=== PATIENT | female | born 1935 | race Caucasian/White ===

== ENCOUNTER 2018-05-30 09:11 | Inpatient (IN) | payer BC ==
[~2018-05-30] VITALS: Ht 154.9 cm; Wt 55.9 kg
[~2018-05-30 09:11] MED LIST: ASPI81CH43 PO; BUM1T PO; FLUT250M2 INH; PAR20T GT; POTA1TAB61 PO
[2018-05-30 09:50] LABS: Basophils # (auto) 0 uL; Basophils % (auto) 0.5 % (0.0-2.0); Eosinophils # (auto) 0.3 uL; Eosinophils % (auto) 3.3 % (0.0-7.0); Hematocrit 43.5 % (36.0-46.0); Hemoglobin 14.9 g/dL (12.2-16.2); Lymphocytes % (auto) 13.7 % (10.0-50.0); Mean Corpuscular Hemoglobin 33.5 pg (28.0-32.0); Mean Corpuscular Hgb Conc. 34.2 g/dL (32.0-36.0); Monocytes # (auto) 0.5 uL; Monocytes % (auto) 7.1 % (0.0-12.0); Neutrophils # (auto) 5.8 uL; Neutrophils % (auto) 75.4 % (37.0-80.0); Nucleated Red Blood Cells % 0.1 %; Platelet Count (auto) 358 10^3/uL (140-450); Red Blood Cells 4.44 10^6/uL (4.0-5.20); Red Cell Distribution Width 12.9 % (11.8-14.3); White Blood Cell 7.7 10^3/uL (4.4-10.8)
[2018-05-30] MEDS ORDERED: LORazepam 2MG/ML-1ML VIAL ONE (10:04)
[2018-05-30] MEDS ORDERED: LORazepam 2MG/ML-1ML VIAL IV ONE (10:15)
[2018-05-30 10:16] LABS: Alanine Aminotransferase 19 U/L (13-56); Albumin 3.7 g/dL (3.4-5.0); Alkaline Phosphatase 74 U/L (45-117); Anion Gap 9 (5-15); Aspartate Aminotransferase 18 U/L (15-37); BUN/Creatinine Ratio 21.2; Bilirubin, Total 0.6 mg/dL (0.2-1.0); Blood Urea Nitrogen 24 mg/dL (7-18); Carbon Dioxide 25 mmol/L (21-32); Chloride 91 mmol/L (98-107); GFR African American 60 mL/min; GFR Non-African American 49 mL/min; Glucose 94 mg/dL (74-106); Magnesium 2.3 mg/dL (1.6-2.6); Potassium 4.4 mmol/L (3.5-5.1); Sodium 125 mmol/L (136-145)
[2018-05-30 10:26] LABS: Urine WBC None Seen /hpf (0 - 5)
[2018-05-30 10:31] LABS: Urine Bacteria NONE SEEN /hpf (None Seen); Urine Blood Negative /uL (Negative); Urine Specific Gravity 1.009 (1.001-1.035)
[2018-05-30] MEDS ORDERED: SODIUM CHLORIDE 0.9% 1,000 ML IV ONE (11:58)
[2018-05-30] MEDS ORDERED: NITROGLYCERIN 0.4 MG SL TAB SL PRN (12:45)
[2018-05-30] MEDS ORDERED: ACETAMINOPHEN 325 MG TAB PO PRN (12:45)
[2018-05-30] MEDS ORDERED: MORPHINE SULFATE 4 MG/ML SYR/VIAL IV PRN ×2 (12:45)
[2018-05-30] MEDS ORDERED: LORazepam 2MG/ML-1ML VIAL IV PRN (12:45)
[2018-05-30] MEDS ORDERED: ONDANSETRON HCL 4 MG/2 ML VIAL IV PRN (12:45)
[2018-05-30] MEDS ORDERED: DOCUSATE SOD 100 MG CAP PO PRN (12:45)
[2018-05-30] MEDS ORDERED: HYDROcodone-ACET 5/325MG TAB PO PRN (12:45)
[2018-05-30] MEDS: SODIUM CHLOR 0.9% PF (SALINE LOCK) 10ML VIAL/SYR IV SCH ×2 (14:00→22:24)
[2018-05-30 17:40] VITALS: BP 140/83
[2018-05-30] MEDS ORDERED: FURO40TA PO (19:42)
[2018-05-30] MEDS ORDERED: LORA-655 PO (19:42)
[2018-05-30] MEDS ORDERED: LISI2.5T47 PO (19:42)
[2018-05-30 22:00] VITALS: BP 109/59
[2018-05-30] MEDS: ADVAIR IN SCH (22:00)
[2018-05-31 05:30] VITALS: BP 139/75
[2018-05-31 05:34] LABS: Basophils # (auto) 0.1 uL; Eosinophils # (auto) 0.4 uL; Eosinophils % (auto) 5.4 % (0.0-7.0); Hematocrit 44.9 % (36.0-46.0); Hemoglobin 14.9 g/dL (12.2-16.2); Lymphocytes # (auto) 1.4 uL; Lymphocytes % (auto) 19.5 % (10.0-50.0); Mean Corpuscular Hemoglobin 33.4 pg (28.0-32.0); Mean Corpuscular Hgb Conc. 33.1 g/dL (32.0-36.0); Mean Corpuscular Volume 100.7 fL (80.0-100.0); Monocytes # (auto) 0.8 uL; Monocytes % (auto) 11.4 % (0.0-12.0); Neutrophils # (auto) 4.6 uL; Neutrophils % (auto) 62.7 % (37.0-80.0); Nucleated Red Blood Cells % 0.1 %; Platelet Count (auto) 342 10^3/uL (140-450); Red Blood Cells 4.46 10^6/uL (4.0-5.20); Red Cell Distribution Width 13.1 % (11.8-14.3); White Blood Cell 7.3 10^3/uL (4.4-10.8)
[2018-05-31 05:57] LABS: Albumin 3.3 g/dL (3.4-5.0); BUN/Creatinine Ratio 22.5; Calcium 8.8 mg/dL (8.5-10.1); Potassium 4.2 mmol/L (3.5-5.1)
[2018-05-31 06:00] LABS: Bilirubin, Total 0.6 mg/dL (0.2-1.0); Total Protein 6.3 g/dL (6.4-8.2)
[2018-05-31] MEDS: SODIUM CHLOR 0.9% PF (SALINE LOCK) 10ML VIAL/SYR IV SCH ×3 (06:31→21:26)
[2018-05-31 08:28] VITALS: BP 133/73
[2018-05-31 09:47] LABS: Cholesterol 243 mg/dL (< 200); HDL Cholesterol 77 mg/dL (40-59); LDL Cholesterol 145 mg/dL (< 100); Triglycerides 153 mg/dL (< 150)
[2018-05-31] MEDS: ADVAIR IN SCH ×2 (10:00→21:26)
[2018-05-31] MEDS ORDERED: ASPirin-EC 81 mg tab PO SCH (10:00)
[2018-05-31] MEDS: ASPirin-EC 81 mg tab PO SCH (10:09)
[2018-05-31] MEDS: PARoxetine 20 MG TAB PO SCH ×2 (10:09→10:22)
[2018-05-31] MEDS: LISINOPRIL 5 MG TAB PO SCH (10:10)
[2018-05-31] MEDS: POTASSIUM CHL 10 Meq TABLET PO SCH (10:11)
[2018-05-31] MEDS: MULTIPLE VITAMIN TAB PO SCH (10:12)
[2018-05-31] MEDS: BUMETANIDE 1 MG TAB PO SCH (10:12)
[2018-05-31 13:13] VITALS: BP 106/60
[2018-05-31] MEDS ORDERED: LORazepam 0.5 MG TAB PO ONE (15:15)
[2018-05-31 17:28] VITALS: BP 118/69
[2018-05-31 22:00] VITALS: BP 97/56
[2018-05-31] MEDS ORDERED: LORazepam 0.5 MG TAB PO SCH (22:00)
[2018-05-31] MEDS ORDERED: ATORVASTATIN 20 MG TAB PO SCH (22:00)
[2018-05-31] MEDS ORDERED: LEVO25TA6 PO (22:21)
[2018-06-01 05:00] VITALS: BP 103/65
[2018-06-01] MEDS: SODIUM CHLOR 0.9% PF (SALINE LOCK) 10ML VIAL/SYR IV SCH ×2 (06:22→14:00)
[2018-06-01 09:02] VITALS: BP 105/59
[2018-06-01] MEDS: ASPirin-EC 81 mg tab PO SCH (09:26)
[2018-06-01] MEDS: MULTIPLE VITAMIN TAB PO SCH (09:27)
[2018-06-01] MEDS: POTASSIUM CHL 10 Meq TABLET PO SCH (09:28)
[2018-06-01] MEDS: PARoxetine 20 MG TAB PO SCH ×2 (09:28)
[2018-06-01] MEDS: ADVAIR IN SCH (09:29)
[2018-06-01] MEDS: BUMETANIDE 1 MG TAB PO SCH (09:29)
[2018-06-01] MEDS: LISINOPRIL 5 MG TAB PO SCH (09:30)
[2018-06-01 12:00] VITALS: BP 128/78
[2018-06-01] MEDS ORDERED: ATORVASTATIN 20 MG TAB PO ONE (15:15)
[2018-06-01 17:22] VITALS: BP 140/72
== END 2018-06-01 17:38 | disposition home health service (06) | DRG 897 ==
LOC: EDBD 09:11 → ER 09:14 → TELE 09:15 → TELE-WESTW 17:24
PROVIDERS: ADMIT Internal Medicine; ATTEND Internal Medicine
DX: F13.239 Sedative, hypnotic or anxiolytic dependence with withdrawal, unspecified (principal); E87.1 Hypo-osmolality and hyponatremia; I13.0 Hypertensive heart and chronic kidney disease with heart failure and stage 1 through stage 4 chronic kidney disease, or unspecified chronic kidney disease; J44.9 Chronic obstructive pulmonary disease, unspecified; N18.3 Chronic kidney disease, stage 3 (moderate); E78.5 Hyperlipidemia, unspecified; F17.200 Nicotine dependence, unspecified, uncomplicated; I50.9 Heart failure, unspecified; R41.81 Age-related cognitive decline; F32.9 Major depressive disorder, single episode, unspecified; F41.1 Generalized anxiety disorder; I67.2 Cerebral atherosclerosis; Z79.82 Long term (current) use of aspirin; Z79.899 Other long term (current) drug therapy; Z81.8 Family history of other mental and behavioral disorders; Z82.3 Family history of stroke; Z82.49 Family history of ischemic heart disease and other diseases of the circulatory system; Z86.73 Personal history of transient ischemic attack (TIA), and cerebral infarction without residual deficits; Z91.19 Patient's noncompliance with other medical treatment and regimen; Z83.3 Family history of diabetes mellitus; Z88.8 Allergy status to other drugs, medicaments and biological substances; Z90.49 Acquired absence of other specified parts of digestive tract; Z80.42 Family history of malignant neoplasm of prostate
CPT/HCPCS: 36415; 70450; 70551; 80053; 80061; 81001; 82607; 83735; 84443; 84484; 85025; 93005; 93306; 93886; 96361; 96374